=== PATIENT | female | born 1970 | race Caucasian/White ===

== ENCOUNTER → 2018-06-22 19:08 | Outpatient (CLI) | payer BC ==
[~2018-06-22 19:08] MED LIST: HUMALOG 30100 UNITS/ SC; INSULIN SQ; LEVAQUIN750 MG PO; LITHIUM CARBON150 MG PO; NEURONTIN 300300 MG PO; NORCO 10-325 TA1 TAB PO
[2018-06-28 13:26] VITALS: BMI 36.7
== END | disposition home or self-care (01) ==
LOC: D.LABREF 19:08
DX: L02.612 Cutaneous abscess of left foot (principal)

== ENCOUNTER 2018-06-27 10:05 | Inpatient (IN) | payer MEDICARE, OTHER ==
[2018-06-25 12:40] LABS: HEMATOCRIT 44.1 % (36.0-48.0); HEMOGLOBIN 15.4 g/dL (12-16); MCH 30.5 pg (26.0-34.0); MCHC 34.9 g/dL (31.0-37.0); MCV 87.3 fL (80.0-100.0); MEAN PLATELET VOLUME 9.5 fL (7.4-10.4); RBC 5.05 10x6/uL (4.00-5.40); RDW 12.8 % (11.5-14.5); WBC 9.4 10x3/uL (4.8-10.8)
[2018-06-25 12:48] LABS: CALC OSMOLALITY 268 mosm/kg (275-300); CALCIUM 9.4 mg/dL (8.5-10.1); CHLORIDE - SERUM 96 mmol/L (98-107); CREATININE - SERUM 0.4 mg/dL (0.6-1.3); GLUCOSE 261 mg/dL (74-106); POTASSIUM - SERUM 4.5 mmol/L (3.5-5.1); SODIUM 130 mmol/L (136-145); UREA NITROGEN 9 mg/dL (7-18); eGFR NON AFRICAN AMERICAN > 90 mL/min (90-120)
[~2018-06-27] VITALS: Ht 162.6 cm; Wt 97.1 kg
[~2018-06-27 10:05] MED LIST changes: -LITHIUM CARBON150 MG PO; -NEURONTIN 300300 MG PO
[2018-06-27 11:54] VITALS: BP 133/88; BMI 37.0
[2018-06-27 14:45] VITALS: BP 150/88
[2018-06-27 15:23] VITALS: BP 149/84
[2018-06-27] MEDS ORDERED: NEURONTIN 300300 MG PO (16:49)
[2018-06-27] MEDS ORDERED: LITHIUM CARBON150 MG PO (16:51)
[2018-06-27 17:09] VITALS: BP 154/89
[2018-06-27 17:15] VITALS: BP 149/84; BMI 36.8
[2018-06-27 20:00] VITALS: BP 156/100
[2018-06-28] VITALS: BP 151/79
[2018-06-28 04:00] VITALS: BP 144/79
[2018-06-28 05:28] LABS: BASOPHILS 0.2 % (0-2); EOSINOPHILS 1.2 % (0-7); HEMATOCRIT 40.2 % (36.0-48.0); HEMOGLOBIN 13.8 g/dL (12-16); IMMATURE GRANULOCYTES 0.5 % (0-5); LYMPHOCYTES 21.2 % (15-50); MCH 29.9 pg (26.0-34.0); MCHC 34.3 g/dL (31.0-37.0); MEAN PLATELET VOLUME 9.9 fL (7.4-10.4); MONOCYTES 5.6 % (2-11); NEUTROPHILS 71.3 % (40-80); PLATELET COUNT 335 10x3/uL (130-400); RBC 4.62 10x6/uL (4.00-5.40); RDW 13.1 % (11.5-14.5); WBC 12.4 10x3/uL (4.8-10.8)
[2018-06-28 05:58] LABS: CALC OSMOLALITY 267 mosm/kg (275-300); CALCIUM 8.9 mg/dL (8.5-10.1); CARBON DIOXIDE 24.3 mmol/L (21.0-32.0); CHLORIDE - SERUM 97 mmol/L (98-107); CREATININE - SERUM 0.6 mg/dL (0.6-1.3); POTASSIUM - SERUM 3.8 mmol/L (3.5-5.1); SODIUM 132 mmol/L (136-145); UREA NITROGEN 7 mg/dL (7-18); eGFR NON AFRICAN AMERICAN > 90 mL/min (90-120)
[2018-06-28 06:09] LABS: GLUCOSE 185 mg/dL (74-106)
[2018-06-28 09:00] VITALS: BP 144/70
[2018-06-28 12:00] VITALS: BP 131/81
[2018-06-28 13:26] VITALS: Ht 162.6 cm; Wt 97.1 kg
[2018-06-28 16:00] VITALS: BP 140/75
[2018-06-28 20:00] VITALS: BP 159/99
[2018-06-29 04:00] VITALS: BP 176/116
[2018-06-29 05:03] LABS: BASOPHILS 0.2 % (0-2); HEMATOCRIT 41.2 % (36.0-48.0); HEMOGLOBIN 14.1 g/dL (12-16); IMMATURE GRANULOCYTES 0.8 % (0-5); LYMPHOCYTES 23.8 % (15-50); MCH 30.1 pg (26.0-34.0); MCHC 34.2 g/dL (31.0-37.0); MEAN PLATELET VOLUME 10.1 fL (7.4-10.4); NEUTROPHILS 67.2 % (40-80); PLATELET COUNT 334 10x3/uL (130-400); RBC 4.68 10x6/uL (4.00-5.40); WBC 10.8 10x3/uL (4.8-10.8)
[2018-06-29 06:14] LABS: CALCIUM 8.7 mg/dL (8.5-10.1); CARBON DIOXIDE 24.6 mmol/L (21.0-32.0); CREATININE - SERUM 0.5 mg/dL (0.6-1.3); eGFR NON AFRICAN AMERICAN > 90 mL/min (90-120)
[2018-06-29 06:15] LABS: GLUCOSE 251 mg/dL (74-106); UREA NITROGEN 5 mg/dL (7-18)
[2018-06-29 06:26] LABS: CALC OSMOLALITY 278 mosm/kg (275-300); CHLORIDE - SERUM 100 mmol/L (98-107); POTASSIUM - SERUM 3.9 mmol/L (3.5-5.1); SODIUM 137 mmol/L (136-145)
[2018-06-29 08:51] VITALS: BP 177/94
[2018-06-29 15:27] VITALS: BP 156/86
[2018-06-29 20:28] VITALS: BP 150/88
[2018-06-29 23:54] VITALS: BP 109/63
[2018-06-30 04:32] VITALS: BP 125/76
[2018-06-30 05:54] LABS: BASOPHILS 0.3 % (0-2); EOSINOPHILS 3.3 % (0-7); HEMATOCRIT 41.2 % (36.0-48.0); LYMPHOCYTES 28.6 % (15-50); MCH 30.2 pg (26.0-34.0); MCV 88.8 fL (80.0-100.0); MEAN PLATELET VOLUME 10.6 fL (7.4-10.4); MONOCYTES 5.8 % (2-11); PLATELET COUNT 350 10x3/uL (130-400); RBC 4.64 10x6/uL (4.00-5.40); RDW 13.2 % (11.5-14.5); WBC 11.2 10x3/uL (4.8-10.8)
[2018-06-30 06:21] LABS: CALC OSMOLALITY 273 mosm/kg (275-300); CALCIUM 8.6 mg/dL (8.5-10.1); CARBON DIOXIDE 25.2 mmol/L (21.0-32.0); CHLORIDE - SERUM 100 mmol/L (98-107); CREATININE - SERUM 0.7 mg/dL (0.6-1.3); GLUCOSE 261 mg/dL (74-106); POTASSIUM - SERUM 3.7 mmol/L (3.5-5.1); SODIUM 134 mmol/L (136-145); UREA NITROGEN 5 mg/dL (7-18); eGFR NON AFRICAN AMERICAN > 90 mL/min (90-120)
[2018-06-30 09:00] VITALS: BP 140/88
[2018-06-30 11:01] VITALS: BP 115/81
[2018-06-30 12:30] VITALS: BP 142/82
== END 2018-06-30 14:08 | disposition home or self-care (01) | DRG 617 ==
LOC: D.MS 10:05 → D.OPS 10:05 → D.PAN 12:00 → D.MS 14:54 → D.OPS 06-28 07:31 → D.MS 06-30 14:08
PROVIDERS: Anesthesiology; Podiatrist Foot & Ankle Surgery
PROC: 0H9NXZZ Drainage of Left Foot Skin, External Approach (ICD-10-PCS; principal; 2018-06-28)
PROC: 0QBP0ZZ Excision of Left Metatarsal, Open Approach (ICD-10-PCS; 2018-06-30)
PROC: 0Y6W0Z0 Detachment at Left 4th Toe, Complete, Open Approach (ICD-10-PCS; 2018-06-30 08:00)
DX: E11.69 Type 2 diabetes mellitus with other specified complication (principal); L03.116 Cellulitis of left lower limb; M86.172 Other acute osteomyelitis, left ankle and foot; F17.213 Nicotine dependence, cigarettes, with withdrawal; E11.65 Type 2 diabetes mellitus with hyperglycemia

== ENCOUNTER 2018-08-05 17:10 | Inpatient (IN) | payer MEDICARE, OTHER ==
[2018-08-05] VITALS (13 sets, daily range): BP systolic 106–133; BP diastolic 64–86; BMI 41.3
[~2018-08-05] VITALS: Ht 162.6 cm; Wt 108.2 kg
[~2018-08-05 17:10] MED LIST changes: +LITHIUM CARBON150 MG PO; +NEURONTIN 300300 MG PO
--- NOTE | 2018-08-05 18:04 | NUR ---
REPORT GIVEN TO SHERITA THOMAS, UTILIZING SBAR FORMAT.
--- NOTE | 2018-08-05 18:04 | NUR ---
PT MOVED TO TRAUMA 1 TO BE PLACED ON BiPaP AT THIS TIME.
--- NOTE | 2018-08-05 18:08 | NUR ---
RECEIVED PT. PLACED ON BIPAP PER RT. O2 SAT 100%. BBS COURSE CRACKLES THORUGHOUT LUNG LIRIANO. S1S2 PRESENT. ABD SOUNDS PRESENT.
[2018-08-05 18:45] LABS: HEMATOCRIT 42.3 % (36.0-48.0); HEMOGLOBIN 14.3 g/dL (12-16); MCH 29.7 pg (26.0-34.0); MCHC 33.8 g/dL (31.0-37.0); MCV 87.9 fL (80.0-100.0); MEAN PLATELET VOLUME 11.1 fL (7.4-10.4); PLATELET COUNT 269 10x3/uL (130-400); RBC 4.81 10x6/uL (4.00-5.40); RDW 13.9 % (11.5-14.5); WBC 15.1 10x3/uL (4.8-10.8)
[2018-08-05 18:50] LABS: ALBUMIN 2.7 g/dL (3.4-5.0); ALKALINE PHOSPHATASE 89 U/L (46-116); ALT (SGPT) 15 U/L (10-68); CALC OSMOLALITY 281 mosm/kg (275-300); CALCIUM 9.3 mg/dL (8.5-10.1); CARBON DIOXIDE 28.3 mmol/L (21.0-32.0); CHLORIDE - SERUM 93 mmol/L (98-107); CREATININE - SERUM 0.6 mg/dL (0.6-1.3); PROTEIN - SERUM 6.8 g/dL (6.4-8.2); SODIUM 133 mmol/L (136-145); UREA NITROGEN 21 mg/dL (7-18); eGFR NON AFRICAN AMERICAN > 90 mL/min (90-120)
[2018-08-05 18:51] LABS: GLUCOSE 328 mg/dL (74-106)
[2018-08-05 18:58] LABS: PRO BNP 800 pg/mL (0-125)
--- NOTE | 2018-08-05 19:20 | NUR ---
DR. FABIAN AT BEDSIDE. DRSG TO LEFT FOOT REMOVED. REPLACED DRSG HER STATES THAT HE APPLIES AT HOME. BETADINE SOAKED 4X4 ON TOP AND BOTTOM OF FOOT, ADDITIONAL 4X4 APPLIED TO TOP AND BOTTOM OF FOOT, WRAPPED WITH KERLEX, SECURED WITH TAPE.
[2018-08-05 19:35] LABS: LYMPHOCYTES 11 % (15-50); MONOCYTES 9 % (2-11); NEUTROPHILS 78 % (40-80)
[2018-08-05 19:36] LABS: PLATELET ESTIMATE NORMAL
--- NOTE | 2018-08-05 20:45 | NUR ---
PT RECEIVED TO UNIT VIA STRETCHER WITH ER NURSE. PT TRANSFERRED TO ICU BED AND CONNECTED TO MONITOR WITH MODERATE ASSIST ON TRANSFER. PLACED ON BIPAP. BLOOD PRESSURE ELEVATED WITH TWO READINGS AND WNL AFTER RESTING A FEW MINUTES. SPO2 97% ON BIPAP. WILL CONTINUE TO OBSERVE. CALL LIGHT IN REACH.
--- NOTE | 2018-08-05 21:45 | NUR ---
HOMEOPATHIC DOCTOR CALLED TO RECEIVE LITHIUM, GABIPENTIN, AND LOVENOX. WILL CONTINUE TO OBSERVE.
--- NOTE | 2018-08-05 23:25 | NUR ---
PT WITH EYES CLOSED AND CHEST RISING. ON BIPAP. EASILY AWOKEN TO VERBAL STIMULI. REASSESSMENT COMPLETED, SEE FLOW SHEET. CALL LIGHT IN REACH. WILL CONTINUE TO OBSERVE.
[2018-08-06] VITALS (25 sets, daily range): BP systolic 109–145; BP diastolic 37–91; Ht 162.6 cm; Wt 108.2 kg
--- NOTE | 2018-08-06 02:09 | NUR ---
PT REPOSITIONED. CONTINUES BIPAP. WILL CONTINUE TO OBSERVE.
[2018-08-06 04:13] LABS: BASOPHILS 0.3 % (0-2); EOSINOPHILS 0 % (0-7); HEMATOCRIT 36.9 % (36.0-48.0); HEMOGLOBIN 12.6 g/dL (12-16); IMMATURE GRANULOCYTES 0.7 % (0-5); LYMPHOCYTES 11.7 % (15-50); MCHC 34.1 g/dL (31.0-37.0); MCV 87.9 fL (80.0-100.0); MEAN PLATELET VOLUME 10.9 fL (7.4-10.4); MONOCYTES 7.8 % (2-11); NEUTROPHILS 79.5 % (40-80); PLATELET COUNT 291 10x3/uL (130-400); RDW 14.2 % (11.5-14.5); WBC 14.3 10x3/uL (4.8-10.8)
[2018-08-06 04:25] LABS: CALC OSMOLALITY 273 mosm/kg (275-300); CALCIUM 9.1 mg/dL (8.5-10.1); CARBON DIOXIDE 29.7 mmol/L (21.0-32.0); CHLORIDE - SERUM 93 mmol/L (98-107); CREATININE - SERUM 0.7 mg/dL (0.6-1.3); GLUCOSE 304 mg/dL (74-106); POTASSIUM - SERUM 4.3 mmol/L (3.5-5.1); SODIUM 129 mmol/L (136-145); UREA NITROGEN 25 mg/dL (7-18); eGFR NON AFRICAN AMERICAN > 90 mL/min (90-120)
--- NOTE | 2018-08-06 07:00 | NUR ---
RECEIVED BEDSIDE REPORT ON PATIENT AND ASSUMED CARE. HEAD TO TOE ASSESSMENT COMPLETED. BBS - SHALLOW, RR - 28, ON BIPAP AT 50% FiO2, COARSE RHONCI TO ALL LIRIANO AND DIMINISHED IN BASES. IV INFUSING WITHOUT DIFFICULTY, NO S/S OF INFILTRATION. DRESSING TO LEFT FOOT, CLEAN DRY AND INTACT. STATES BEEN IN WHEELCHAIR X 3 WEEKS SINCE HAVING 4TH TOE ON LEFT FOOT AMPUTATED. ALSO HAS A DIABETIC ULCER ON BOTTOM OF LEFT FOOT. CM - ST RATE OF 105 NO ECTOPY NOTED. 20 GA IV TO RIGHT AC, PATENT, NS INFUSING AT 100 ML/HR.
--- NOTE | 2018-08-06 11:00 | NUR ---
REASSESSMENT COMPLETED, VSS. DR. TREJO AT ROOM UPDATED AND EXAMINES PATIENT. PATIENT REMOVED FROM BIPAP AND PLACED ON HIGH FLOW NC AT 5 LPM WITH SP02 - 91-92%. VSS. WILL CONTINUE TO MONITOR.
--- NOTE | 2018-08-06 13:07 | NUR ---
PATIENT UP TO BEDSIDE COMMODE WITH PARTIAL ASSIST X 2. VSS. VOIDS APPROXIMATELY 500 CC MIYA COLOR. SPO2 - 87% AND HR UP TO 116. BACK TO BED.
--- NOTE | 2018-08-06 13:33 | NUR ---
IV 22 GA STARTED TO RIGHT HAND, X 1 ATTEMPT, POSITIVE BLOOD DRAW AND FLUSHES EASILY, NO S/S OF INFILTRATION. NS INFUSING AT 100 CC/HR WITH ANTIBIOTICS.
--- NOTE | 2018-08-06 15:01 | NUR ---
REASSESSMENT COMPLETED. VSS. GIVEN NORCO 10 MG FOR BACK PAIN C/O PAIN 04/11. IV INFUSING TO RIGHT HAND WITH NO S/S OF INFILTRATION. NICODERM PATCH TO LEFT SHOULDER 21 MG. PATIENT HISTORY OF 3 PACK/DAY SMOKER SINCE AGE OF 13. WILL CONTINUE TO MONITOR. REPOSITIONED IN BED.
--- NOTE | 2018-08-06 16:26 | NUR ---
PATIENT UP TO BEDSIDE CHAIR WITH STANDBY ASSIST X 2. VSS. WILL CONTINUE TO MONITOR. CALL LIGHT IN REACH.
--- NOTE | 2018-08-06 17:04 | NUR ---
PATIENT SITTING UP IN BEDSIDE CHAIR, VSS. NO COMPLAINTS OR NEEDS AT THIS TIME. AT BEDSIDE.
--- NOTE | 2018-08-06 20:17 | NUR ---
PT SITTING UP IN BEDSIDE CHAIR, LETHARGIC ABLE TO ANSWER QUESTIONS APPROPRIATELY, VSS, RT AT BEDSIDE TO GIVE Tx, PT C/O LEFT LOWER BACK PAIN, REQUESTING PAIN MED, WILL CONTINUE TO MONITOR
[2018-08-07] VITALS (11 sets, daily range): BP systolic 103–142; BP diastolic 72–109
[2018-08-07 04:39] LABS: HEMATOCRIT 34.1 % (36.0-48.0); HEMOGLOBIN 11.2 g/dL (12-16); MCH 29.4 pg (26.0-34.0); MCHC 32.8 g/dL (31.0-37.0); MCV 89.5 fL (80.0-100.0); MEAN PLATELET VOLUME 10.5 fL (7.4-10.4); RBC 3.81 10x6/uL (4.00-5.40); RDW 14.5 % (11.5-14.5); WBC 12.9 10x3/uL (4.8-10.8)
[2018-08-07 04:42] LABS: PLATELET COUNT 367 10x3/uL (130-400)
[2018-08-07 04:54] LABS: ALKALINE PHOSPHATASE 72 U/L (46-116); ALT (SGPT) 13 U/L (10-68); BILIRUBIN - TOTAL 0.54 mg/dL (0.2-1.3); CALC OSMOLALITY 275 mosm/kg (275-300); CALCIUM 8.8 mg/dL (8.5-10.1); CARBON DIOXIDE 29.6 mmol/L (21.0-32.0); CHLORIDE - SERUM 98 mmol/L (98-107); CREATININE - SERUM 0.5 mg/dL (0.6-1.3); GLUCOSE 194 mg/dL (74-106); PROTEIN - SERUM 6.4 g/dL (6.4-8.2); SODIUM 135 mmol/L (136-145); UREA NITROGEN 14 mg/dL (7-18)
[2018-08-07 04:55] LABS: ALBUMIN 1.9 g/dL (3.4-5.0); POTASSIUM - SERUM 3.5 mmol/L (3.5-5.1); eGFR NON AFRICAN AMERICAN > 90 mL/min (90-120)
[2018-08-07 05:10] LABS: EOSINOPHILS 1 % (0-7); LYMPHOCYTES 19 % (15-50); MONOCYTES 3 % (2-11); NEUTROPHILS 72 % (40-80)
[2018-08-07 05:11] LABS: PLATELET ESTIMATE NORMAL
--- NOTE | 2018-08-07 08:40 | NUR ---
CALL IN CODE CONFIRMED WITH PT AND PTS NEICE. PT UP IN BED AWAKE, NO ACUTE DISTRESS NOTED. CALL LIGHT IN REACH. WILL CONTINUE PLAN OF CARE.
--- NOTE | 2018-08-07 09:39 | NUR ---
UP IN BED, BIPAP IN PLACE. NO ACUTE DISTRESS NOTED. FAMILY AT BEDSIDE. WILL CONTINUE PLAN OF CARE.
--- NOTE | 2018-08-07 09:46 | NUR ---
NUTRITION F//U PT NPO THIS AM. REMAINS ON BIPAP. WILL PROVIDE DIET WHEN RESUMED. MONITOR PT PROGRESS. RD FOLLOWING
--- NOTE | 2018-08-07 13:35 | NUR ---
PER DR HANSON, OKAY TO TRANSFER IF NEED BED. PER PULMONOLGY, OKAY TO TRANSFER. ALSO PER DR HANSON CAN START FULL LIQUID DIET, ADVANCE TOLERATED. PT UP IN BED RESTING AT THIS TIME. RESPIRATIONS STEADY AND UNLABORED. NO ACUTE DISTRESS NOTED. AWAKENS EASILY WHEN SPOKEN TO. WILL CONTINUE PLAN OF CARE.
--- NOTE | 2018-08-07 16:59 | MORECARE ---
CASE MANAGEMENT DISCHARGE SUMMARY PATIENT: DONOVAN LOPEZ UNIT: [id number] ADM DATE: 08/05/18 AGE: 47 : 68 SEX: F ROOM/BED: D.2315 AUTHOR: EVERTON MELVIN PHYSICIAN: REFERRING PHYSICIAN: DONATO FABIAN MD DATE OF SERVICE: 08/07/18 Discharge Plan Patient Name: DONOVAN LOPEZ [facility] : 1970 Planned Disposition: Home Anticipated Discharge Date: Discharge Date: Expected LOS: Initial Reviewer: [email or web address] Initial Review Date: 08/07/2018 Generated: 08/07/18 5:59 pm DCPIA - Discharge Planning Initial Assessment Updated by [email or web address]: Zoe Huang on 08/07/18 4:57 pm * Is the patient Alert and Oriented? Yes * How many steps to enter\exit or inside your home? ramp * PCP Mynor * Pharmacy [facility] * Preadmission Environment Home with Family * ADLs Independent * Other Equipment BSC, walker, shower chair, w/c * List name and contact numbers for known caregivers / representatives who currently or will assist patient after discharge: Iglesia Lopez - spouse- [phone] * Verbal permission to speak to the caregivers and representatives has been obtained from the patient. Yes * Community resources currently utilized None * Additional services required to return to the preadmission environment? No * Can the patient safely return to the preadmission environment? Yes * Has this patient been hospitalized within the prior 30 days at any hospital? No Patient Name: DONOVAN LOPEZ Page [id number] at 1659 All edits/amendments must be made on the electronic document DICTATION DATE: 08/07/181658 SUPERVISOR HOME ENERGY CONSULTANT: REYMUNDO 08/07/181658 RPT#: [id number] DC DATE: STATUS: ADM IN [facility] [address] [place] [address] END OF REPORT
--- NOTE | 2018-08-07 17:16 | MORECARE ---
CASE MANAGEMENT DISCHARGE SUMMARY PATIENT: DONOVAN LOPEZ UNIT: [id number] ADM DATE: 08/05/18 AGE: 47 : 68 SEX: F ROOM/BED: D.2315 AUTHOR: OLEGARIODOC PHYSICIAN: REFERRING PHYSICIAN: DONATO FABIAN MD DATE OF SERVICE: 08/07/18 Discharge Plan Patient Name: DONOVAN LOPEZ Facility: [facility]:[place] : 1970 Planned Disposition: Home Anticipated Discharge Date: Discharge Date: Expected LOS: Initial Reviewer: [email or web address] Initial Review Date: 08/07/2018 Generated: 08/07/18 6:16 pm Comments DCP- Discharge Planning Updated by [email or web address]: Zoe Huang on 08/07/18 4:[address] Patient Name: DONOVAN LOPEZ Admission Status: ER Accout number: [id number] Admission Date: 08-05-2018 : 1970 Admission Diagnosis: Attending: DONATO FABIAN Current LOS: 2 Anticipated DC Date: Planned Disposition: Home Primary Insurance: MEDICARE A & B Discharge Planning Comments: CM met with patient at bedside. Patient states that she lives with her Iglesia and other family. Patient states that she plans to return to her home upon discharge. Patient states that she does have BSC, walker, shower chair, and wheelchair. Patient also states that she has an old 02 concentrator but doesn't know if it still works. Patient doesn't remember name of provider. If patient requires home 02 may need walk test. CM will continue to follow and assist as needed with discharge planning / needs. Rn Gyn: Zoe Huang DCPIA - Discharge Planning Initial Assessment Updated by [email or web address]: Zoe Huang on 08/07/18 4:57 pm * Is the patient Alert and Oriented? Yes * How many steps to enter\exit or inside your home? ramp * PCP Mynor * Pharmacy [facility] * Preadmission Environment Home with Family * ADLs Independent * Other Equipment BSC, walker, shower chair, w/c * List name and contact numbers for known caregivers / representatives who currently or will assist patient after discharge: Iglesia oLpez - spouse- [phone] * Verbal permission to speak to the caregivers and representatives has been obtained from the patient. Yes * Community resources currently utilized None * Additional services required to return to the preadmission environment? No * Can the patient safely return to the preadmission environment? Yes * Has this patient been hospitalized within the prior 30 days at any hospital? No Last DP export: 08/07/18 3:59 pm Patient Name: DONOVAN LOPEZ Page [phone] at 1716 All edits/amendments must be made on the electronic document DICTATION DATE: 08/07/181714 ALGEBRAIST: REYMUNDO 08/07/181714 RPT#: [id number] DC DATE: STATUS: ADM IN [facility] [address] [place] [address] END OF REPORT
--- NOTE | 2018-08-07 17:40 | NUR ---
NOTED PT TO TRANSFER TO ROOM 1204. REPORT CALLED TO RECIEVING NURSE, STATED ROOM IS NOT YET READY BUT WILL CALL WHEN IT IS. PT UP IN CHAIR EATING SUPPER AT THIS TIME. NO ACUTE DISTRESS NOTED. WILL CONTINUE PLAN OF CARE.
--- NOTE | 2018-08-07 18:50 | NUR ---
RECEIVED PATIENT TO ROOM 1204 VIA WHEELCHAIR. RESP EVEN AND UNLABORED. PATIENT ABLE TO TRANSFER SELF FROM WC TO CHAIR AT BEDSIDE. BIPAP BROUGHT WITH PATIENT. CALLED RESPIRATORY THERAPY FOR BIPAP SET UP. LARGE HERNIA NOTED TO LEFT LOWER QUAD. DENIES PAIN AT THIS TIME. NO DISTRESS.
--- NOTE | 2018-08-07 18:53 | NUR ---
TRANSFERRED TO ROOM 1204 AT THIS TIME VIA WHEELCHAIR WITH ALL PERSONAL ITEMS. NO ACUTE DISTRESS NOTED. NO FURTHER ACTIONS.
--- NOTE | 2018-08-07 19:20 | NUR ---
PT RECEIVED TO UNIT FROM ICU. RESPIRATORY TO SETUP BIPAP. NO NEEDS MADE KNOWN. WILL CONTINUE TO OBSERVE.
--- NOTE | 2018-08-07 22:30 | NUR ---
PT RECEIVED MEDICATIONS PER MAR, TOLERATED WELL. INSULINS GIVEN PER MAR AND SSI. PRN PAIN MEDICATIONS GIVEN PER MAR FOR BACK PAIN. CALL LIGHT IN REACH. WILL CONTINUE TO OBSERVE.
--- NOTE | 2018-08-07 23:55 | NUR ---
PATIENT RESTING IN BED ON BIPAP WITH EYES CLOSED AND NO S/S OF DISTRESS. BED IN LOWEST POSITION AND CALL LIGHT WITHIN REACH. WILL CONTINUE TO MONITOR.
--- NOTE | 2018-08-08 01:15 | NUR ---
PATIENT RESTING IN BED WITH EYES CLOSED AND NO S/S OF DISTRESS. BED IN LOWEST POSITION AND CALL LIGHT WITHIN REACH. WILL CONTINUE TO MONITOR.
[2018-08-08 05:12] VITALS: BP 115/70
[2018-08-08 08:27] VITALS: BP 140/78
[2018-08-08 09:05] LABS: HEMATOCRIT 37.2 % (36.0-48.0); MCH 29.3 pg (26.0-34.0); MCHC 32.3 g/dL (31.0-37.0); MEAN PLATELET VOLUME 9.8 fL (7.4-10.4); PLATELET COUNT 422 10x3/uL (130-400); RBC 4.09 10x6/uL (4.00-5.40); RDW 14.9 % (11.5-14.5); WBC 12.1 10x3/uL (4.8-10.8)
--- NOTE | 2018-08-08 09:15 | NUR ---
PATIENT HAS REFUSED THE MRI 4 TIMES. IT WILL NEED TO BE REORDERED IF THE PATIENT IS WILLING TO HAVE THE MRI DONE.
[2018-08-08 09:25] LABS: ALBUMIN 2.2 g/dL (3.4-5.0); ALKALINE PHOSPHATASE 102 U/L (46-116); ALT (SGPT) 26 U/L (10-68); BILIRUBIN - TOTAL 0.62 mg/dL (0.2-1.3); CALC OSMOLALITY 281 mosm/kg (275-300); CALCIUM 8.8 mg/dL (8.5-10.1); CARBON DIOXIDE 30.3 mmol/L (21.0-32.0); CHLORIDE - SERUM 100 mmol/L (98-107); CREATININE - SERUM 0.5 mg/dL (0.6-1.3); GLUCOSE 181 mg/dL (74-106); PROTEIN - SERUM 6.6 g/dL (6.4-8.2); SODIUM 139 mmol/L (136-145); UREA NITROGEN 9 mg/dL (7-18); VANCOMYCIN - TROUGH 3.6 ug/mL (10.0-20.0); eGFR NON AFRICAN AMERICAN > 90 mL/min (90-120)
[2018-08-08 09:32] LABS: EOSINOPHILS 2 % (0-7); LYMPHOCYTES 25 % (15-50); MONOCYTES 15 % (2-11); NEUTROPHILS 52 % (40-80); PLATELET ESTIMATE INCREASED; PLATELET MORPHOLOGY NORMAL PLT MORPH
--- NOTE | 2018-08-08 09:55 | NUR ---
CALLED PHARMACY AND INFORMED GARRICK THAT I NEED NICOTINE PATCH FOR PT.
[2018-08-08 11:16] VITALS: BP 118/71
--- NOTE | 2018-08-08 12:09 | NUR ---
BLOOD SUGAR OF 233 , 8UNTIS OF HUMULIN GIVEN PER S/S. PT UP TO CHAIR, DENIES ANY NEEDS AT THIS TIME. CALL LIGHT IN REACH, NAD NOTED, WILL CONTINUE TO MONITOR.
--- NOTE | 2018-08-08 14:04 | NUR ---
Pt is now on a diabetic diet with 100% intake of meals yesterday Observed lunch and pt has not eaten much however she reports she is waiting on her to eat. Pt is able to feed self Pt reports no nutrition related questions or concerns at this time Reviewed chart and labs RD following
[2018-08-08 15:14] VITALS: BP 146/74
--- NOTE | 2018-08-08 19:30 | NUR ---
UP RESTING IN CHAIR DENIES NEEDS AT THIS TIME LCTA SKIN WARM AND DRY CALL LIGHT IS WITH IN REACH OF PT NO NOTED DISTRESS
[2018-08-08 20:23] VITALS: BP 156/78
--- NOTE | 2018-08-08 23:35 | NUR ---
VANC WILL BE STARTED LATE DUE TO 4 HOUR TIME OF ZOSYN
[2018-08-09 00:25] VITALS: BP 140/73
--- NOTE | 2018-08-09 01:55 | NUR ---
INSISTED AND ALLOWED TO BE UP IN CHAIR BIPAP OFF AT THIS TIME
--- NOTE | 2018-08-09 01:55 | NUR ---
PT CALLED TO BE OFF OF BIPAP, HIGH FLOW NC PLACED BACK ON. PT WANTING INTO CHAIR. ASSISTED PT TO CHAIR. PT DENIES ANY OTHER NEEDS. NO S/S OF DISTRESS. CALL LIGHT IN REACH. CAN SEE PT ROOM FROM NURSING STATION. WILL CPOC
[2018-08-09 04:00] VITALS: BP 134/78
[2018-08-09 07:05] LABS: BASOPHILS 1.3 % (0-2); EOSINOPHILS 1.5 % (0-7); HEMATOCRIT 37.1 % (36.0-48.0); HEMOGLOBIN 12.1 g/dL (12-16); IMMATURE GRANULOCYTES 15.3 % (0-5); LYMPHOCYTES 15.4 % (15-50); MCH 29.7 pg (26.0-34.0); MCHC 32.6 g/dL (31.0-37.0); MCV 90.9 fL (80.0-100.0); MEAN PLATELET VOLUME 9.8 fL (7.4-10.4); MONOCYTES 9.5 % (2-11); PLATELET COUNT 413 10x3/uL (130-400); RBC 4.08 10x6/uL (4.00-5.40); RDW 14.9 % (11.5-14.5); WBC 11.9 10x3/uL (4.8-10.8)
[2018-08-09 07:21] LABS: ALBUMIN 2.1 g/dL (3.4-5.0); ALKALINE PHOSPHATASE 92 U/L (46-116); ALT (SGPT) 25 U/L (10-68); BILIRUBIN - TOTAL 0.57 mg/dL (0.2-1.3); CALC OSMOLALITY 282 mosm/kg (275-300); CALCIUM 8.7 mg/dL (8.5-10.1); CARBON DIOXIDE 29.4 mmol/L (21.0-32.0); CHLORIDE - SERUM 103 mmol/L (98-107); GLUCOSE 214 mg/dL (74-106); PHOSPHOROUS 3.6 mg/dL (2.5-4.9); POTASSIUM - SERUM 4.1 mmol/L (3.5-5.1); PROTEIN - SERUM 7.2 g/dL (6.4-8.2); SODIUM 140 mmol/L (136-145); UREA NITROGEN 7 mg/dL (7-18)
[2018-08-09 07:22] LABS: CREATININE - SERUM 0.7 mg/dL (0.6-1.3); eGFR NON AFRICAN AMERICAN > 90 mL/min (90-120)
--- NOTE | 2018-08-09 07:45 | NUR ---
ASSESSMENT COMPLETE. IV TO R HAND PATENT. SL TO R FA. O2 4L NC IN USE. SITTING UP IN CHAIR. REPORTS CLEAR SPUTUM. DENIES ANY NEEDS AT THIS TIME. SITTING UP IN CHAIR.
[2018-08-09 08:14] VITALS: BP 149/81
--- NOTE | 2018-08-09 10:27 | MORECARE ---
CASE MANAGEMENT DISCHARGE SUMMARY PATIENT: DONOVAN LOPEZ UNIT: [id number] ADM DATE: 08/05/18 AGE: 47 : 68 SEX: F ROOM/BED: D.1204 AUTHOR: OLEGARIODOC PHYSICIAN: REFERRING PHYSICIAN: DONATO FABIAN MD DATE OF SERVICE: 08/09/18 Discharge Plan Patient Name: DONOVAN LOPEZ Facility: [facility]:[place] : 1970 Planned Disposition: Home Anticipated Discharge Date: Discharge Date: Expected LOS: Initial Reviewer: [email or web address] Initial Review Date: 08/07/2018 Generated: 08/09/18 11:27 am Comments DCP- Discharge Planning Updated by [email or web address]: Zoe Huang on 08/07/18 4:[address] Patient Name: DONOVAN LOPEZ Admission Status: ER Accout number: [id number] Admission Date: 08-05-2018 : 1970 Admission Diagnosis: Attending: DONATO FABIAN Current LOS: 2 Anticipated DC Date: Planned Disposition: Home Primary Insurance: MEDICARE A & B Discharge Planning Comments: CM met with patient at bedside. Patient states that she lives with her Iglesia and other family. Patient states that she plans to return to her home upon discharge. Patient states that she does have BSC, walker, shower chair, and wheelchair. Patient also states that she has an old 02 concentrator but doesn't know if it still works. Patient doesn't remember name of provider. If patient requires home 02 may need walk test. CM will continue to follow and assist as needed with discharge planning / needs. Quiller Machine Fixer: Zoe Huang DCPIA - Discharge Planning Initial Assessment Updated by [email or web address]: Zoe Huang on 08/07/18 4:57 pm * Is the patient Alert and Oriented? Yes * How many steps to enter\exit or inside your home? ramp * PCP Mynor * Pharmacy [facility] * Preadmission Environment Home with Family * ADLs Independent * Other Equipment BSC, walker, shower chair, w/c * List name and contact numbers for known caregivers / representatives who currently or will assist patient after discharge: Iglesia Lopez - spouse- [phone] * Verbal permission to speak to the caregivers and representatives has been obtained from the patient. Yes * Community resources currently utilized None * Additional services required to return to the preadmission environment? No * Can the patient safely return to the preadmission environment? Yes * Has this patient been hospitalized within the prior 30 days at any hospital? No Last DP export: 08/07/18 4:16 pm Patient Name: DONOVAN LOPEZ Page 16871 at 1027 All edits/amendments must be made on the electronic document DICTATION DATE: 08/09/18 1027 TI[facility] CENTER SUPERVISOR: REYMUNDO 08/09/18 1027 RPT#: [id number] DC DATE: STATUS: ADM IN [facility] [address] [place] [address] END OF REPORT
[2018-08-09 11:52] VITALS: BP 152/76
--- NOTE | 2018-08-09 12:00 | NUR ---
CONTINUES SITTING UP IN CHAIR.
--- NOTE | 2018-08-09 14:30 | MORECARE ---
CASE MANAGEMENT DISCHARGE SUMMARY PATIENT: DONOVAN LOPEZ UNIT: [id number] ADM DATE: 08/05/18 AGE: 47 : 68 SEX: F ROOM/BED: D.1204 AUTHOR: OLEGARIO,DOC PHYSICIAN: REFERRING PHYSICIAN: DONATO FABIAN MD DATE OF SERVICE: 08/09/18 Discharge Plan Patient Name: DONOVAN LOPEZ Facility: [facility]:[place] : 1970 Planned Disposition: Home Anticipated Discharge Date: Discharge Date: Expected LOS: Initial Reviewer: [email or web address] Initial Review Date: 08/07/2018 Generated: 08/09/18 3:30 pm Comments DCP- Discharge Planning Updated by [email or web address]: Jennifer Matthew on 08/09/18 1:[address] CM met with patient about discharge planning / needs. Patient choice [facility] for home Oxygen and Trilogy. CM called [facility] and spoke with Angela about referral. Faxed records as requested. CM will continue to follow and assist as needed with discharge planning / needs. DCP- Discharge Planning Updated by [email or web address]: Zoe Huang on 08/07/18 4:[address] Patient Name: DONOVAN LOPEZ Admission Status: ER Accout number: [id number] Admission Date: 08-05-2018 : 1970 Admission Diagnosis: Attending: DONATO FABIAN Current LOS: 2 Anticipated DC Date: Planned Disposition: Home Primary Insurance: MEDICARE A & B Discharge Planning Comments: CM met with patient at bedside. Patient states that she lives with her Iglesia and other family. Patient states that she plans to return to her home upon discharge. Patient states that she does have BSC, walker, shower chair, and wheelchair. Patient also states that she has an old 02 concentrator but doesn't know if it still works. Patient doesn't remember name of provider. If patient requires home 02 may need walk test. CM will continue to follow and assist as needed with discharge planning / needs. Lead Atg Developer: Zoe Huang DCPIA - Discharge Planning Initial Assessment Updated by [email or web address]: Zoe Huang on 08/07/18 4:57 pm * Is the patient Alert and Oriented? Yes * How many steps to enter\exit or inside your home? ramp * PCP Mynor * Pharmacy [facility] * Preadmission Environment Home with Family * ADLs Independent * Other Equipment BSC, walker, shower chair, w/c * List name and contact numbers for known caregivers / representatives who currently or will assist patient after discharge: Iglesia Lopez - spouse- [phone] * Verbal permission to speak to the caregivers and representatives has been obtained from the patient. Yes * Community resources currently utilized None * Additional services required to return to the preadmission environment? No * Can the patient safely return to the preadmission environment? Yes * Has this patient been hospitalized within the prior 30 days at any hospital? No External Providers External Provider: Luis Urrutia Next Contact Date: Service Request Date: Service Type: Resolution: Reviewer: Comments: Coverage Notice Reviewer: [email or web address] Ahsan Matthew Notice Issued Date-Time: 08/09/2018 14:18 Notice Type: Patient Choice Letter Notice Delivered To: Patient Relationship to Patient: Self Rib Cloth Knitter Name: Delivery Method: HAND - Hand Delivered Monik Days: Prior Verbal Notification: Recipient Understood Notice: Yes Recipient Signature: Yes Med Rec Note Co-signed by Attending: Coverage Notice Comment: DME: Carmen Amor DP export: 08/09/18 9:27 am Patient Name: DONOVAN LOPEZ Page 24492 at 1430 All edits/amendments must be made on the electronic document DICTATION DATE: 08/09/18 1430 BUSINESS SERVICES REPRESENTATIVE: REYMUNDO 08/09/18 1430 RPT#: [id number] DC DATE: STATUS: ADM IN [facility] [address] [place] [address] END OF REPORT
--- NOTE | 2018-08-09 15:58 | NUR ---
NO CHANGES NOTED AT THIS TIME.
[2018-08-09 16:07] VITALS: BP 132/73
--- NOTE | 2018-08-09 16:54 | MORECARE ---
CASE MANAGEMENT DISCHARGE SUMMARY PATIENT: DONOVAN LOPEZ UNIT: [id number] ADM DATE: 08/05/18 AGE: 47 : 68 SEX: F ROOM/BED: D.1204 AUTHOR: OLEGARIO,DOC PHYSICIAN: REFERRING PHYSICIAN: DONATO FABIAN MD DATE OF SERVICE: 08/09/18 Discharge Plan Patient Name: DONOVAN LOPEZ Facility: [facility]:[place] : 1970 Planned Disposition: Home Anticipated Discharge Date: Discharge Date: Expected LOS: Initial Reviewer: [email or web address] Initial Review Date: 08/07/2018 Generated: 08/09/18 5:54 pm Comments DCP- Discharge Planning Updated by [email or web address]: Jennifer Matthew on 08/09/18 1:[address] CM met with patient about discharge planning / needs. Patient choice [facility] for home Oxygen and Trilogy. CM called [facility] and spoke with Angela about referral. Faxed records as requested. CM will continue to follow and assist as needed with discharge planning / needs. DCP- Discharge Planning Updated by [id number]: Zoe Huang on 08/07/18 4:[address] Patient Name: DONOVAN LOPEZ Admission Status: ER Accout number: [id number] Admission Date: 08-05-2018 : 1970 Admission Diagnosis: Attending: DONATO FABIAN Current LOS: 2 Anticipated DC Date: Planned Disposition: Home Primary Insurance: MEDICARE A & B Discharge Planning Comments: CM met with patient at bedside. Patient states that she lives with her Iglesia and other family. Patient states that she plans to return to her home upon discharge. Patient states that she does have BSC, walker, shower chair, and wheelchair. Patient also states that she has an old 02 concentrator but doesn't know if it still works. Patient doesn't remember name of provider. If patient requires home 02 may need walk test. CM will continue to follow and assist as needed with discharge planning / needs. Gymnastics Coach Or Instructor: Zoe Huang DCPIA - Discharge Planning Initial Assessment Updated by [email or web address]: Zoe Huang on 08/07/18 4:57 pm * Is the patient Alert and Oriented? Yes * How many steps to enter\exit or inside your home? ramp * PCP Mynor * Pharmacy [facility] * Preadmission Environment Home with Family * ADLs Independent * Other Equipment BSC, walker, shower chair, w/c * List name and contact numbers for known caregivers / representatives who currently or will assist patient after discharge: Iglesia Lopez - [facility]- [phone] * Verbal permission to speak to the caregivers and representatives has been obtained from the patient. Yes * Community resources currently utilized None * Additional services required to return to the preadmission environment? No * Can the patient safely return to the preadmission environment? Yes * Has this patient been hospitalized within the prior 30 days at any hospital? No Coverage Notice Reviewer: [email or web address] Ahsan Matthew Notice Issued Date-Time: 08/09/2018 14:18 Notice Type: Patient Choice Letter Notice Delivered To: Patient Relationship to Patient: Self Ironer Or Presser Name: Delivery Method: HAND - Hand Delivered Monik Days: Prior Verbal Notification: Recipient Understood Notice: Yes Recipient Signature: Yes Med Rec Note Co-signed by Attending: Coverage Notice Comment: DME: Carmen Amor DP export: 08/09/18 1:30 pm Patient Name: DONOVAN LOPEZ Page [phone] at 1654 All edits/amendments must be made on the electronic document DICTATION DATE: 08/09/181653 MATERIAL REQUIREMENTS WORKER: REYMUNDO 08/09/181653 RPT#: [id number] DC DATE: STATUS: ADM IN [facility] [address] [place] [address] END OF REPORT
[2018-08-09 20:00] VITALS: BP 156/82
[2018-08-10 00:10] VITALS: BP 137/77
[2018-08-10 03:58] VITALS: BP 124/61
[2018-08-10 06:48] LABS: HEMATOCRIT 35.5 % (36.0-48.0); HEMOGLOBIN 11.4 g/dL (12-16); MCH 29.3 pg (26.0-34.0); MCHC 32.1 g/dL (31.0-37.0); MCV 91.3 fL (80.0-100.0); MEAN PLATELET VOLUME 9.9 fL (7.4-10.4); PLATELET COUNT 414 10x3/uL (130-400); RBC 3.89 10x6/uL (4.00-5.40); RDW 14.8 % (11.5-14.5); WBC 12.7 10x3/uL (4.8-10.8)
[2018-08-10 06:53] LABS: ALBUMIN 1.9 g/dL (3.4-5.0); ALKALINE PHOSPHATASE 83 U/L (46-116); ALT (SGPT) 21 U/L (10-68); BILIRUBIN - TOTAL 0.47 mg/dL (0.2-1.3); CALC OSMOLALITY 286 mosm/kg (275-300); CALCIUM 8.5 mg/dL (8.5-10.1); CARBON DIOXIDE 30.7 mmol/L (21.0-32.0); CHLORIDE - SERUM 104 mmol/L (98-107); CREATININE - SERUM 0.6 mg/dL (0.6-1.3); GLUCOSE 238 mg/dL (74-106); POTASSIUM - SERUM 4.2 mmol/L (3.5-5.1); PROTEIN - SERUM 6.7 g/dL (6.4-8.2); SODIUM 141 mmol/L (136-145); UREA NITROGEN 6 mg/dL (7-18); eGFR NON AFRICAN AMERICAN > 90 mL/min (90-120)
[2018-08-10 07:26] LABS: EOSINOPHILS 5 % (0-7); LYMPHOCYTES 20 % (15-50); MONOCYTES 2 % (2-11); NEUTROPHILS 70 % (40-80); PLATELET ESTIMATE NORMAL; PLATELET MORPHOLOGY GIANT PLTS PRESENT
--- NOTE | 2018-08-10 08:20 | NUR ---
PT RESTING IN CHAIR. NO SIGNS OF DISTRESS. IV TO RIGHT HAND AND RIGHT FORARM PATENT NO REDNESS OR TENDERNESS. ON 4L NC. DENIES ANY NEED AT THIS TIME. CALL LIGHT IN REACH. BED LOW POSITION. NO FAMILY AT BEDSIDE.
[2018-08-10 08:23] VITALS: BP 170/88
--- NOTE | 2018-08-10 10:19 | NUR ---
RN ROUNDING DONE WITH PATIENT IN RESTROOM AT THIS TIME. PATIENT IS HAVING SOME DRY HEGREGG VITALE LPN IN ROOM AT THIS TIME.
[2018-08-10 13:17] VITALS: BP 164/77
--- NOTE | 2018-08-10 13:40 | NUR ---
DRESSING NOTED TO LEFT FOOT. PT STATES DR. ESPINO IS CHANGING DRESSING AND DID NOT WANT IT REMOVED UNTIL HE COMES BACK. POSSIBLE D/C TODAY WITH FOLLOW UP WITH DR. ESPINO.
--- NOTE | 2018-08-10 13:56 | MORECARE ---
CASE MANAGEMENT DISCHARGE SUMMARY PATIENT: DONOVAN LOPEZ UNIT: [id number] ADM DATE: 08/05/18 AGE: 47 : [birth year] SEX: F ROOM/BED: D.1204 AUTHOR: OLEGARIODOC PHYSICIAN: REFERRING PHYSICIAN: DONATO FABIAN MD DATE OF SERVICE: 08/10/18 Discharge Plan Patient Name: DONOVAN LOPEZ Facility: [facility]:[place] : 1970 Planned Disposition: Home Anticipated Discharge Date: Discharge Date: Expected LOS: Initial Reviewer: [email or web address] Initial Review Date: 08/07/2018 Generated: 08/10/18 2:55 pm Comments DCP- Discharge Planning Updated by [email or web address]: Fabby Mehta on 08/10/18 12:[address] Patient Name: DONOVAN LOPEZ Admission Status: ER Accout number: [id number] Admission Date: 08-05-2018 : 1970 Admission Diagnosis:SHORTNESS OF BREATH Attending: DONATO FABIAN Current LOS: 5 Anticipated DC Date: Planned Disposition: Home Primary Insurance: MEDICARE A & B Discharge Planning Comments: CM MET WITH PATIENT ABOUT DC PLANNING. PATIENT REFUSES HH. [facility] HAS SET UP HER 02 AT HER HOME AND BROUGHT HER PORTABLE O2 TO THE HOSPITAL. RT FROM [facility] PLANS TO BE HERE AROUNF 1430 TO SET HER UP ON HER TRILOGY. PLAN TO DC TO HOME WHEN STABLE. CM WILL FOLLOW AND ASSIST NEEDED WITH DC NEEDS. [employer] Aide: Fabby Mehta DCP- Discharge Planning Updated by [email or web address]: Jennifer Matthew on 08/09/18 1:[address] CM met with patient about discharge planning / needs. [facility] choice [facility] for home Oxygen and Trilogy. CM called [facility] and spoke with Angela about referral. Faxed records as requested. CM will continue to follow and assist as needed with discharge planning / needs. DCP- Discharge Planning Updated by [email or web address]: Zoe Huang on 08/07/18 4:[address] Patient Name: DONOVAN LOPEZ Admission Status: ER Accout number: [id number] Admission Date: 08-05-2018 : 1970 Admission Diagnosis: Attending: DONATO FABIAN Current LOS: 2 Anticipated DC Date: Planned Disposition: Home Primary Insurance: MEDICARE A & B Discharge Planning Comments: CM met with patient at bedside. Patient states that she lives with her Iglesia and other family. Patient states that she plans to return to her home upon discharge. Patient states that she does have BSC, walker, shower chair, and wheelchair. Patient also states that she has an old 02 concentrator but doesn't know if it still works. Patient doesn't remember name of provider. If patient requires home 02 may need walk test. CM will continue to follow and assist as needed with discharge planning / needs. [employer] Aide: Zoe Huang DCPIA - Discharge Planning Initial Assessment Updated by [email or web address]: Zoe Huang on 08/07/18 4:57 pm * Is the patient Alert and Oriented? Yes * How many steps to enter\exit or inside your home? ramp * PCP [facility] * Pharmacy [facility] * Preadmission Environment Home with Family * ADLs Independent * Other Equipment BSC, walker, shower chair, w/c * List name and contact numbers for known caregivers / representatives who currently or will assist patient after discharge: Iglesia Lopez - spouse- [phone] * Verbal permission to speak to the caregivers and representatives has been obtained from the patient. Yes * Community resources currently utilized None * Additional services required to return to the preadmission environment? No * Can the patient safely return to the preadmission environment? Yes * Has this patient been hospitalized within the prior 30 days at any hospital? No Coverage Notice Reviewer: [id number] Ahsan Matthew Notice Issued Date-Time: 08/09/2018 14:18 Notice Type: Patient Choice Letter Notice Delivered To: Patient Relationship to Patient: Self Hospice Educator Name: Delivery Method: HAND - Hand Delivered Monik Days: Prior Verbal Notification: Recipient Understood Notice: Yes Recipient Signature: Yes Med Rec Note Co-signed by Attending: Coverage Notice Comment: DME: [facility] DP export: 08/09/18 3:54 pm Patient Name: DONOVAN LOPEZ Page 40013 at 1356 All edits/amendments must be made on the electronic document DICTATION DATE: 08/10/18 1355 TIRE BUILDER: REYMUNDO 08/10/18 1355 RPT#: [id number] DC DATE: STATUS: ADM IN [facility] [address] [place] [address] END OF REPORT
[2018-08-10 16:54] VITALS: BP 160/72
[2018-08-10 17:10] LABS: AEROBE ID Final report (())
[2018-08-11 00:54] VITALS: BP 168/94
[2018-08-11 05:03] VITALS: BP 171/90
[2018-08-11 06:08] LABS: BASOPHILS 0.4 % (0-2); EOSINOPHILS 0.8 % (0-7); HEMATOCRIT 34.9 % (36.0-48.0); HEMOGLOBIN 11.2 g/dL (12-16); IMMATURE GRANULOCYTES 6.3 % (0-5); LYMPHOCYTES 12.7 % (15-50); MCH 29.2 pg (26.0-34.0); MCHC 32.1 g/dL (31.0-37.0); MCV 90.9 fL (80.0-100.0); MEAN PLATELET VOLUME 9.5 fL (7.4-10.4); NEUTROPHILS 73.8 % (40-80); PLATELET COUNT 415 10x3/uL (130-400); RBC 3.84 10x6/uL (4.00-5.40); RDW 14.7 % (11.5-14.5); WBC 14.1 10x3/uL (4.8-10.8)
[2018-08-11 06:41] LABS: ALBUMIN 1.9 g/dL (3.4-5.0); ALKALINE PHOSPHATASE 73 U/L (46-116); ALT (SGPT) 19 U/L (10-68); BILIRUBIN - TOTAL 0.42 mg/dL (0.2-1.3); CALC OSMOLALITY 283 mosm/kg (275-300); CALCIUM 8.2 mg/dL (8.5-10.1); CARBON DIOXIDE 29.3 mmol/L (21.0-32.0); CHLORIDE - SERUM 103 mmol/L (98-107); GLUCOSE 270 mg/dL (74-106); POTASSIUM - SERUM 3.7 mmol/L (3.5-5.1); PROTEIN - SERUM 6.6 g/dL (6.4-8.2); SODIUM 138 mmol/L (136-145); UREA NITROGEN 7 mg/dL (7-18); eGFR NON AFRICAN AMERICAN 81 mL/min (90-120)
[2018-08-11 06:46] LABS: CREATININE - SERUM 0.8 mg/dL (0.6-1.3)
[2018-08-11 08:24] VITALS: BP 159/89
--- NOTE | 2018-08-11 08:30 | NUR ---
ASSISTED PATIENT WITH MEAL SETUP. PATIENT UNABLE TO OPEN JUICE. PATIENT SITTING TO SIDE OF BED. NO DISTRESS. CALL LIGHT WITHIN REACH.
--- NOTE | 2018-08-11 11:45 | NUR ---
DR TREJO SAW PATIENT. VERBALIZED TO ME AND PATIENT THAT LUNGS SOUND BETTER. PATIENT STATED, "I WANT TO GO HOME. I CAN DO THE SAME THING THERE I AM HERE." DR TREJO EXPLAINED THAT HE DID NOT WANT TO DISCHARGE HOME WHILE PATIENT WAS STILL HAVING NAUSEA AND VOMITING AND THAT SHE WOULD NOT BE ABLE TO HAVE IV ANTIOBIOTICS AND IM NAUSEA MED. BLOOD CULTURE POSITIVE. DEFERRED TO DR MAYERS TO DISCHARGE IF HE THINKS READY.
[2018-08-11 12:11] VITALS: BP 160/85
[2018-08-11] MEDS ORDERED: MUCINEX DM ER1 EAC1 PO (15:03)
[2018-08-11] MEDS ORDERED: FLORAJEN3 CAPS460 MG PO (15:03)
[2018-08-11] MEDS ORDERED: Tessalon Perle PO (15:04)
[2018-08-11] MEDS ORDERED: VIBRAMYCIN 100100 MG PO (15:05)
--- NOTE | 2018-08-11 16:57 | NUR ---
[facility]. CALLED IN HER NEW MEDICATIONS TO [facility] [address] REQUESTED.
--- NOTE | 2018-08-11 17:30 | NUR ---
DISCUSSED DISCHARGE, MEDICATION AND FOLLOW-UP INSTRUCTIONS. VERBALIZED UNDERSTANDING. IV REMOVED, TIP INTACT. ALL BELONGINGS SENT WITH PATIENT. DISCHARGED HOME WITH O2 AND TRILOGY. DISCHARGED VIA WHEELCHAIR ACCOMPANIED BY SPOUSE. RX'S CALLED IN TO [facility], BECAUSE [facility] CLOSED. [facility] CLOSES AT 1800. PATIENT ADVISED TO SEED PRODUCTION FIELD SUPERVISOR AND START MEDS IN THE MORNING.
--- NOTE | 2018-08-13 08:13 | MORECARE ---
CASE MANAGEMENT DISCHARGE SUMMARY PATIENT: DONOVAN LOPEZ UNIT: [id number] ADM DATE: 08/05/18 AGE: 47 : 68 SEX: F ROOM/BED: D.1204 AUTHOR: OLEGARIODOC PHYSICIAN: REFERRING PHYSICIAN: DONATO FABIAN MD DATE OF SERVICE: 08/13/18 Discharge Plan Patient Name: DONOVAN LPOEZ Facility: [facility]:[place] : 1970 Planned Disposition: Home Anticipated Discharge Date: 08/11/18 Discharge Date: 08/11/2018 Expected LOS: 6 Initial Reviewer: [email or web address] Initial Review Date: 08/07/2018 Generated: 08/13/18 9:13 am Comments DCP- Discharge Planning Updated by [email or web address]: Fabby Mehta on 08/10/18 12:[address] Patient Name: DONOVAN LOPEZ Admission Status: ER Accout number: [id number] Admission Date: 08-05-2018 : 1970 Admission Diagnosis:SHORTNESS OF BREATH Attending: DONATO FABIAN Current LOS: 5 Anticipated DC Date: Planned Disposition: Home Primary Insurance: MEDICARE A & B Discharge Planning Comments: CM MET WITH PATIENT ABOUT DC PLANNING. PATIENT REFUSES HH. [facility] HAS SET UP HER 02 AT HER HOME AND BROUGHT HER PORTABLE O2 TO THE HOSPITAL. RT FROM [facility] PLANS TO BE HERE AROUNF 1430 TO SET HER UP ON HER TRILOGY. PLAN TO DC TO HOME WHEN STABLE. CM WILL FOLLOW AND ASSIST NEEDED WITH DC NEEDS. Heel Shaver: Fabby Mehta DCP- Discharge Planning Updated by [email or web address]: Jennifer Matthew on 08/09/18 1:[address] CM met with patient about discharge planning / needs. [facility] choice [facility] for home Oxygen and Trilogy. CM called [facility] and spoke with Angela about referral. Faxed records as requested. CM will continue to follow and assist as needed with discharge planning / needs. DCP- Discharge Planning Updated by [email or web address]: Zoe Huang on 08/07/18 4:[address] Patient Name: DONOVAN LOPEZ Admission Status: ER Accout number: [id number] Admission Date: 08-05-2018 : 1970 Admission Diagnosis: Attending: DONATO FABIAN Current LOS: 2 Anticipated DC Date: Planned Disposition: Home Primary Insurance: MEDICARE A & B Discharge Planning Comments: CM met with patient at bedside. Patient states that she lives with her Iglesia and other family. Patient states that she plans to return to her home upon discharge. Patient states that she does have BSC, walker, shower chair, and wheelchair. Patient also states that she has an old 02 concentrator but doesn't know if it still works. Patient doesn't remember name of provider. If patient requires home 02 may need walk test. CM will continue to follow and assist as needed with discharge planning / needs. Heel Shaver: Zoe Huang DCPIA - Discharge Planning Initial Assessment Updated by [email or web address]: Zoe Huang on 08/07/18 4:57 pm * Is the patient Alert and Oriented? Yes * How many steps to enter\exit or inside your home? ramp * PCP [facility] * Pharmacy [facility] * Preadmission Environment Home with Family * ADLs Independent * Other Equipment BSC, walker, shower chair, w/c * List name and contact numbers for known caregivers / representatives who currently or will assist patient after discharge: Iglesia Lopez - spouse- [phone] * Verbal permission to speak to the caregivers and representatives has been obtained from the patient. Yes * Community resources currently utilized None * Additional services required to return to the preadmission environment? No * Can the patient safely return to the preadmission environment? Yes * Has this patient been hospitalized within the prior 30 days at any hospital? No Coverage Notice Reviewer: [id number] Ahsan Matthew Notice Issued Date-Time: 08/09/2018 14:18 Notice Type: Patient Choice Letter Notice Delivered To: Patient Relationship to Patient: Self Acquisitions Editor Name: Delivery Method: HAND - Hand Delivered Monik Days: Prior Verbal Notification: Recipient Understood Notice: Yes Recipient Signature: Yes Med Rec Note Co-signed by Attending: Coverage Notice Comment: DME: [facility] export: 08/10/18 12:55 pm Patient Name: DONOVAN LOPEZ Page 31045 at 0813 All edits/amendments must be made on the electronic document DICTATION DATE: 08/13/18812 LOCATION DIRECTOR: REYMUNDO 08/13/18812 RPT#: [id number] DC DATE:08/11/18 STATUS: DIS IN [facility] [address] [place] [address] END OF REPORT
== END 2018-08-11 17:43 | disposition home or self-care (01) | DRG 871 ==
LOC: D.ER 17:10 → D.EDHOLD 19:02 → D.M3 19:02 → D.ICU 19:02 → D.M3 08-07 18:54
PROVIDERS: Family Medicine; Internal Medicine Pulmonary Disease; ADMIT Internal Medicine Nephrology
PROC: 5A09457 Assistance with Respiratory Ventilation, 24-96 Consecutive Hours, Continuous Positive Airway Pressure (ICD-10-PCS; principal; 2018-08-06)
DX: A41.9 Sepsis, unspecified organism (principal); J96.02 Acute respiratory failure with hypercapnia; J96.01 Acute respiratory failure with hypoxia; J18.9 Pneumonia, unspecified organism; M86.9 Osteomyelitis, unspecified; Z68.41 Body mass index [BMI] 40.0-44.9, adult; E87.1 Hypo-osmolality and hyponatremia; T81.31XA Disruption of external operation (surgical) wound, not elsewhere classified, initial encounter; J44.1 Chronic obstructive pulmonary disease with (acute) exacerbation; E11.69 Type 2 diabetes mellitus with other specified complication; E66.01 Morbid (severe) obesity due to excess calories; Y83.8 Other surgical procedures as the cause of abnormal reaction of the patient, or of later complication, without mention of misadventure at the time of the procedure; J98.01 Acute bronchospasm; Z72.0 Tobacco use

== ENCOUNTER → 2018-09-05 15:27 | Outpatient (CLI) | payer BC, MEDICARE ==
[2018-08-06 11:39] VITALS: BMI 41.2
[~2018-09-05 15:27] MED LIST changes: +FLORAJEN3 CAPS460 MG PO; +MUCINEX DM ER1 EAC1 PO; +Tessalon Perle PO; +VIBRAMYCIN 100100 MG PO
== END | disposition home or self-care (01) ==
LOC: D.US 15:00
PROVIDERS: ATTEND Podiatrist Foot & Ankle Surgery
DX: R60.9 Edema, unspecified (principal); L53.8 Other specified erythematous conditions

== ENCOUNTER 2018-09-15 21:22 | Emergency (ER) | payer BC, MEDICARE ==
[~2018-09-15] VITALS: Ht 162.6 cm; Wt 108.9 kg
[2018-09-15 21:24] VITALS: Ht 162.6 cm; Wt 108.9 kg
[2018-09-15 21:56] LABS: BASOPHILS 0.2 % (0-2); EOSINOPHILS 0.2 % (0-7); HEMATOCRIT 46.1 % (36.0-48.0); HEMOGLOBIN 15.7 g/dL (12-16); IMMATURE GRANULOCYTES 0.4 % (0-5); LYMPHOCYTES 12.9 % (15-50); MCH 29.8 pg (26.0-34.0); MCHC 34.1 g/dL (31.0-37.0); MCV 87.6 fL (80.0-100.0); MONOCYTES 4.1 % (2-11); NEUTROPHILS 82.2 % (40-80); PLATELET COUNT 375 10x3/uL (130-400); RBC 5.26 10x6/uL (4.00-5.40); RDW 14.5 % (11.5-14.5); WBC 12.7 10x3/uL (4.8-10.8)
[2018-09-15 22:10] LABS: ALBUMIN 4.1 g/dL (3.4-5.0); ALKALINE PHOSPHATASE 77 U/L (46-116); ALT (SGPT) 12 U/L (10-68); BILIRUBIN - TOTAL 0.42 mg/dL (0.2-1.3); CALC OSMOLALITY 281 mosm/kg (275-300); CALCIUM 10.1 mg/dL (8.5-10.1); CARBON DIOXIDE 30.7 mmol/L (21.0-32.0); CHLORIDE - SERUM 100 mmol/L (98-107); CREATININE - SERUM 0.7 mg/dL (0.6-1.3); GLUCOSE 245 mg/dL (74-106); POTASSIUM - SERUM 3.9 mmol/L (3.5-5.1); PROTEIN - SERUM 8.4 g/dL (6.4-8.2); SODIUM 138 mmol/L (136-145); UREA NITROGEN 6 mg/dL (7-18); eGFR NON AFRICAN AMERICAN > 90 mL/min (90-120)
[2018-09-15 22:13] LABS: LIPASE 74 U/L (73-393)
[2018-09-15 22:19] LABS: TROPONIN-I < 0.017 ng/mL (0.000-0.060)
[2018-09-15] MEDS ORDERED: PHENERGAN25 M1 PO (22:21)
[2018-09-15 22:45] VITALS: BP 180/101
== END 2018-09-15 22:45 | disposition home or self-care (01) ==
LOC: D.ER 21:22
PROVIDERS: Family Medicine
DX: R11.2 Nausea with vomiting, unspecified (principal)

== ENCOUNTER → 2018-10-18 13:29 | Outpatient (CLI) | payer MEDICARE, BC ==
[2018-09-15 21:24] VITALS: BMI 41.2
[~2018-10-18 13:29] MED LIST changes: +BREO ELLIPTA 11 EACH INH; +HYDROCODON-ACE1 EAC2 PO; +LISINOPRIL10 MG PO; +NORVASC10 MG PO; +PHENERGAN25 M1 PO
== END | disposition home or self-care (01) ==
LOC: D.MRI 13:29
PROVIDERS: ATTEND Podiatrist Foot & Ankle Surgery
DX: S93.322A Subluxation of tarsometatarsal joint of left foot, initial encounter (principal); S92.255A Nondisplaced fracture of navicular [scaphoid] of left foot, initial encounter for closed fracture

== ENCOUNTER 2018-10-25 07:20 | Day surgery (SDC) | payer MEDICARE, BC ==
[2018-10-24 16:12] LABS: BASOPHILS 0.2 % (0-2); EOSINOPHILS 2.9 % (0-7); HEMATOCRIT 39.9 % (36.0-48.0); IMMATURE GRANULOCYTES 0.5 % (0-5); LYMPHOCYTES 37.9 % (15-50); MCH 30.5 pg (26.0-34.0); MCHC 35.1 g/dL (31.0-37.0); MCV 86.9 fL (80.0-100.0); MEAN PLATELET VOLUME 10.3 fL (7.4-10.4); MONOCYTES 4.3 % (2-11); NEUTROPHILS 54.2 % (40-80); PLATELET COUNT 356 10x3/uL (130-400); RBC 4.59 10x6/uL (4.00-5.40); RDW 13.8 % (11.5-14.5); WBC 12.9 10x3/uL (4.8-10.8)
[2018-10-24 16:27] LABS: CALC OSMOLALITY 275 mosm/kg (275-300); CARBON DIOXIDE 22.7 mmol/L (21.0-32.0); CHLORIDE - SERUM 100 mmol/L (98-107); CREATININE - SERUM 0.7 mg/dL (0.6-1.3); POTASSIUM - SERUM 3.8 mmol/L (3.5-5.1); SODIUM 136 mmol/L (136-145); UREA NITROGEN 10 mg/dL (7-18); eGFR NON AFRICAN AMERICAN > 90 mL/min (90-120)
[2018-10-24 16:31] LABS: GLUCOSE 187 mg/dL (74-106)
[~2018-10-25] VITALS: Ht 162.6 cm; Wt 95.3 kg
[~2018-10-25 07:20] MED LIST changes: -LISINOPRIL10 MG PO; -NORVASC10 MG PO
[2018-10-25] MEDS ORDERED: LISINOPRIL10 MG PO (08:00)
[2018-10-25] MEDS ORDERED: NORVASC10 MG PO (08:01)
[2018-10-25 08:12] VITALS: BP 111/61; Ht 162.6 cm; Wt 95.3 kg
--- NOTE | 2018-10-25 11:25 | NUR ---
PATIENT CRYING C/O PAIN IN RT KNEE 10/[address] MUNOZ CALLED TO BEDSIDE FOR FUTHER EVALUATION.
--- NOTE | 2018-10-25 12:15 | NUR ---
PATIENT CONTINUES TO C/O PAIN 8/10 ON PAIN SCALE. OK TO D/C TO [facility] PER ANESTHESIA.
--- NOTE | 2018-10-25 13:35 | NUR ---
DISCHARGED HOME VIA WHEELCHAIR TO PRIVATE VEHICLE WITH SPOUSE
== END 2018-10-25 13:35 | disposition home or self-care (01) ==
LOC: D.OPS 07:20 → D.PAN 09:30 → D.OPS 13:35
PROVIDERS: ATTEND Orthopaedic Surgery
DX: S83.241A Other tear of medial meniscus, current injury, right knee, initial encounter (principal); S83.281A Other tear of lateral meniscus, current injury, right knee, initial encounter; M94.261 Chondromalacia, right knee; M65.861 Other synovitis and tenosynovitis, right lower leg; Z01.812 Encounter for preprocedural laboratory examination

== ENCOUNTER 2018-10-26 13:21 | Emergency (ER) | payer MEDICARE, BC ==
[~2018-10-26] VITALS: Ht 162.6 cm; Wt 88.6 kg
[~2018-10-26 13:21] MED LIST changes: +LISINOPRIL10 MG PO; +NORVASC10 MG PO
[2018-10-26 13:49] VITALS: BP 130/84; Ht 162.6 cm; Wt 88.6 kg
== END 2018-10-26 16:50 | disposition left against medical advice (07) ==
LOC: D.ER 13:21
DX: G89.18 Other acute postprocedural pain (principal)

== ENCOUNTER 2018-10-27 09:36 | Emergency (ER) | payer MEDICARE, BC ==
[2018-10-27 09:40] VITALS: BMI 32.7
[2018-10-27 11:12] VITALS: BP 177/102
== END 2018-10-27 11:12 | disposition home or self-care (01) ==
LOC: D.ER 09:36
DX: G89.18 Other acute postprocedural pain (principal)

== ENCOUNTER 2019-05-10 15:33 | Emergency (ER) | payer MEDICARE, BC ==
[~2019-05-10] VITALS: Ht 162.6 cm; Wt 86.4 kg
[2019-05-10 15:34] VITALS: Ht 162.6 cm; Wt 86.4 kg
[2019-05-10 17:00] LABS: INR 1.02 (0.85-1.17); PROTIME 12.9 SECONDS (11.6-15.0)
[2019-05-10 17:02] LABS: CALC OSMOLALITY 272 mosm/kg (275-300); CALCIUM 8.7 mg/dL (8.5-10.1); CARBON DIOXIDE 33.7 mmol/L (21.0-32.0); CHLORIDE - SERUM 98 mmol/L (98-107); CREATININE - SERUM 0.6 mg/dL (0.6-1.3); GLUCOSE 196 mg/dL (74-106); POTASSIUM - SERUM 3.7 mmol/L (3.5-5.1); SODIUM 135 mmol/L (136-145); UREA NITROGEN 6 mg/dL (7-18); eGFR NON AFRICAN AMERICAN > 90 mL/min (90-120)
[2019-05-10 17:08] LABS: ALBUMIN 3.7 g/dL (3.4-5.0); ALKALINE PHOSPHATASE 77 U/L (46-116); ALT (SGPT) 23 U/L (10-68); BILIRUBIN - TOTAL 0.36 mg/dL (0.2-1.3); PROTEIN - SERUM 7.6 g/dL (6.4-8.2)
[2019-05-10 17:14] LABS: BASOPHILS 0.1 % (0-2); EOSINOPHILS 6.3 % (0-7); HEMATOCRIT 50.7 % (36.0-48.0); IMMATURE GRANULOCYTES 0.5 % (0-5); LYMPHOCYTES 26.7 % (15-50); MCH 29.7 pg (26.0-34.0); MCHC 33.5 g/dL (31.0-37.0); MCV 88.6 fL (80.0-100.0); MEAN PLATELET VOLUME 10.3 fL (7.4-10.4); MONOCYTES 5.4 % (2-11); PLATELET COUNT 228 10x3/uL (130-400); RBC 5.72 10x6/uL (4.00-5.40); RDW 13.7 % (11.5-14.5); WBC 7.4 10x3/uL (4.8-10.8)
[2019-05-10] MEDS ORDERED: DIFLUCAN200 MG PO (18:15)
[2019-05-10] MEDS ORDERED: CLEOCIN HCL300 MG PO (18:15)
[2019-05-10 18:21] VITALS: BP 177/102
== END 2019-05-10 18:21 | disposition left against medical advice (07) ==
LOC: D.ER 15:33
PROVIDERS: Family Medicine
DX: L03.116 Cellulitis of left lower limb (principal); E11.9 Type 2 diabetes mellitus without complications

== ENCOUNTER 2020-11-26 17:30 | Emergency (ER) | payer MEDICARE, BC ==
[~2020-11-26] VITALS: Ht 162.6 cm; Wt 109.1 kg
[~2020-11-26 17:30] MED LIST changes: +CLEOCIN HCL300 MG PO; +DIFLUCAN200 MG PO
[2020-11-26 17:43] VITALS: BP 134/77; Ht 162.6 cm; Wt 109.1 kg
== END 2020-11-27 01:19 | disposition left against medical advice (07) ==
LOC: D.ER 17:30
DX: R10.9 Unspecified abdominal pain (principal)